=== PATIENT | male | born 1995 | race Two or more races ===

== ENCOUNTER 2024-11-02 06:38 | Emergency (ER) | payer MEDICAID, SELFPAY ==
[2024-11-02 06:39] VITALS: BMI 28.0
[2024-11-02 06:58] VITALS: BP 159/97; PULSE 83; RESP 19; TEMP 37.3; O2SAT 97
--- NOTE | 2024-11-02 07:02 | XR_ITS ---
Examination: CT abdomen and pelvis without contrast. Coronal 3-D reconstructions. Sagittal 2-D reconstructions. Date and time of exam:November 02, 2024, 0715 hours INDICATIONS: Abdominal pain and vomiting today CTDI: vol (mGy): 10.4 DLP: (mGycm): 664 Technique: Axial images of the abdomen have been obtained, 3 mm slice thickness Intravenous contrast material has not been administered. Low dose protocols were performed. One or more of the following dose reduction techniques were used; automated exposure control, adjustment of the mA and/or KV according to patient size, use of iterative reconstruction technique. Findings: Hepatomegaly, 20 cm with severe diffuse fatty infiltration throughout the liver No gallstones Spleen not enlarged No pancreatic or adrenal mass No renal or ureteral calculi, no hydronephrosis Normal appendix No bowel obstruction Colonic diverticulosis, no diverticulitis Normal seminal vesicles Contracted urinary bladder with significant urinary bladder wall thickening No prostatomegaly Adequate bone density IMPRESSION: Moderate hepatomegaly with severe diffuse fatty infiltration throughout the liver No renal or ureteral calculi, no hydronephrosis Normal appendix No bowel obstruction or diverticulitis Contracted urinary bladder with urinary bladder wall thickening, consider cystitis
--- NOTE | 2024-11-02 07:11 | PD.EDNV ---
Nausea/Vomit./Diarrhea-RME/HPI General Chief complaint: Abdominal Pain Stated complaint: UPPER ABD PAIN AND VOMITING Time Seen by Provider: 11/02/24 06:40 Arrival date/time: 11/02/24 06:38 RME / HPI RME / HPI Narrative: 29-year-old patient presents emergency department with complaint of generalized abdominal pain for the past 2 days along with nonbilious vomiting. Patient denies diarrhea. Patient denies any alleviating factors. Symptoms is aggravated with eating. He denies fever or chills he denies possibility of food poisoning. He denies any previous history of abdominal surgeries. Description of Vomiting: food contents and watery Related Data Previous Rx's ?Medication ?Instructions ?Recorded mupirocin calcium 2 % topical 1 applicatio topical TID #15 grams 02/21/18 cream (Bactroban) acetaminophen 500 mg tablet 500 mg PO Q6H PRN pain #30 tabs 11/02/24 famotidine 40 mg tablet (Pepcid) 40 mg PO .qbedtime #14 tabs 11/02/24 ondansetron 4 mg disintegrating 4 mg PO Q8H PRN nausea and 11/02/24 tablet vomiting #12 tabs Allergies Allergy/AdvReac Type Severity Reaction Status Date / Time No Known Allergies Allergy Verified 11/02/24 06:39 Review of Systems Review of Systems Systems Reviewed: All systems reviewed, normal except as documented Constitutional Constitutional: Reports system reviewed and no additional complaints, except as documented ENT Ears, Nose, Mouth, and Throat: Reports system reviewed and no additional complaints, except as documented Cardiovascular Cardiovascular: Reports system reviewed and no additional complaints, except as documented Respiratory Respiratory: Reports system reviewed and no additional complaints, except as documented Gastrointestinal Gastrointestinal: Reports system reviewed and no additional complaints, except as documented Musculoskeletal Musculoskeletal: Reports system reviewed and no additional complaints, except as documented ED Exam General General appearance: Present alert and in no apparent distress Head Head exam: Present atraumatic and normocephalic ENT ENT exam: Present normal exam and normal oropharynx Respiratory Respiratory exam: Present normal lung sounds bilaterally Cardiovascular Cardiovascular exam: Present regular rate and normal rhythm Abdominal Exam Abdominal exam: Present soft and normal bowel sounds; Absent tenderness, guarding or rigidity Extremities Exam Extremities exam: Present normal inspection and full ROM Neurological Exam Neurological exam: Present alert and oriented X3 Psychiatric Psychiatric exam: Present normal affect and normal mood Course Quality Measures none Orders Category Date Time Status CT abdomen pelvis wo con Stat Exams 11/02/24 07:02 Completed CBC Stat Lab 11/02/24 07:33 Completed CMP [Comprehensive Metabolic Panel] Stat Lab 11/02/24 07:33 Completed Lipase Stat Lab 11/02/24 07:33 Completed Urinalysis, C/S if Indicated Stat Lab 11/02/24 07:32 Completed Morphine Inj Med 11/02/24 07:05 Discontinued 4 mg IVP Q1H ONE Ondansetron Inj [Zofran Inj] Med 11/02/24 07:02 Discontinued 4 mg IVP X1 ONE Pantoprazole Inj [Protonix Inj] Med 11/02/24 07:02 Discontinued 40 mg IVP X1 ONE Sodium Chloride 0.9% 1000 ml [Ns] 1,000 ml Med 11/02/24 07:03 Discontinued IV 999 mls/hr Vital Signs Vital signs: Vital Signs Temperature 99.1 F 11/02/24 06:58 Pulse Rate 83 11/02/24 06:58 Respiratory Rate 19 11/02/24 06:58 Blood Pressure 159/97 H 11/02/24 06:58 Pulse Oximetry (%) 97 11/02/24 06:58 Oxygen Delivery Method Room Air 11/02/24 06:58 Nausea/Vomiting/Diarrhea MDM Narrative MDM Narrative:: 29-year-old patient presents emergency department complaint of vomiting and epigastric pain blood work was unremarkable. CT abdomen pelvis was also unremarkable. Signs and symptoms appears consistent with possible gastroenteritis patient is in agreement with plan and is stable to DC home patient remained afebrile nontoxic-appearing throughout ED stay Patient data External records reviewed:: None Clinical information provided by:: patient Social determinants that could affect healthcare access:: none Patient has the following chronic illnesses:: na How is presenting disease/condition affected by chronic disease/condition?: uneffected by Evaluation data The following diagnostics were reviewed and interpreted by me:: lab results and radiology exam(s) Lab and/or radiology exams considered but not ordered:: both considered and ordered Interpretation Summary: un remarkable Medications / Prescriptions Medications / Prescriptions considered but not ordered:: meds considered and ordered Medication administrations:: Medication Administration History Discontinued Medications Sodium Chloride (Ns) 1,000 mls @ 999 mls/hr IV .Q1H1M ONE Stop: 11/02/24 08:03 Morphine Sulfate (Morphine Sulf Inj 10 Mg/Ml Vial) 4 mg IVP Q1H ONE Stop: 11/02/24 07:06 Ondansetron HCl (Ondansetron Inj 2 Mg/Ml Inj 2 Ml) 4 mg IVP X1 ONE; Protocol Stop: 11/02/24 07:03 Pantoprazole Sodium (Pantoprazole Inj 40 Mg Vial) 40 mg IVP X1 ONE Stop: 11/02/24 07:03 per above Consultations Consultation(s) initiated? (list below): No Diagnosis Nausea Differential Diagnosis: traveler's diarrhea, food poisoning, gastroenteritis, drug-induced nausea and vomiting and dehydration Most likely diagnosis given after review of the tests above:: gastroenteritis Admission Indicated Admission indicated?: not indicated Admission Request Was there a request for admission?: No Disposition Plan Disposition Plan: Discharge Discharge Attestation Discharge Attestation: The patient and all family members were given an opportunity to ask questions and understood the discharge instructions. Discharge instructions specifically effects, indications for sooner follow up or return to the emergency department, and the expected course of current diagnosis. Patient condition: Stable Discharge Plan Plan Patient Disposition: HOME (Self Care) Prescriptions/Referrals Prescriptions/Med Rec: New ondansetron 4 mg tablet,disintegrating 4 mg PO Q8H PRN (Reason: nausea and vomiting) Qty: 12 0RF famotidine [Pepcid] 40 mg tablet 40 mg PO .qbedtime Qty: 14 0RF acetaminophen 500 mg tablet 500 mg PO Q6H PRN (Reason: pain) Qty: 30 0RF No Action mupirocin calcium [Bactroban] 2 % cream 1 applicatio TOPICAL TID Qty: 15 0RF Referrals: No Primary/Family,Physician [Primary Care Provider] - In 1 week Problem List Clinical Impression: Acute epigastric pain, Gastroesophageal reflux, Gastroenteritis Patient/Caregiver Discharge Instructions Education Materials: How Acid Reflux Affects Your Throat, Understanding Colitis, ED Gastroenteritis, Noninfectious, ED Epigastric Pain (Uncertain Cause) Print Language: Ken[place] Stand Alone Forms: Dianne Award Info., Patient Portal Info Letter
[2024-11-02 07:42] LABS: Collection Type, Urine Voided
[2024-11-02 07:54] LABS: Basophils % (Auto) 0 % (0-2.5); Eosinophils # (Auto) 0.3 Thou/mm3 (0.0-0.5); Eosinophils % (Auto) 2 % (0-10); Hematocrit 49.3 % (41.0-53.0); Hemoglobin 16.9 g/dL (13.5-16.0); Immature Granulocytes % (Auto) 1 % (0-0); Immature Granulocytes Auto 0.11 Thou/mm3 (0.00-0.00); Lymphocytes # (Auto) 1.1 Thou/mm3 (1.0-4.8); Lymphocytes % (Auto) 8 % (10-50); Mean Corpuscular HGB Conc 34.3 g/dl (31.0-37.0); Mean Corpuscular Hemoglobin 29.6 pg (25.0-35.0); Mean Corpuscular Volume 87 fL (80-100); Monocytes # (Auto) 0.4 Thou/mm3 (0.0-0.8); Monocytes % (Auto) 3 % (0-12); Neutrophils # (Auto) 12.2 Thou/mm3 (1.8-7.7); Neutrophils % (Auto) 86 % (37-80); Nucleated Red Blood Cell % 0 /100 WBC (0); Platelet Count 271 Thou/mm3 (140-440); RDW Standard Deviation 38.8 fL (35.1-43.9); White Blood Count 14.1 Thou/mm3 (3.8-10.6)
[2024-11-02 08:04] LABS: Alanine Aminotransferase 79 U/L (10-49); Albumin, Serum 4.7 gm/dL (3.5-5.0); Albumin/Globulin Ratio 1.5 (1.2-2.2); Alkaline Phosphatase 81 U/L (46-116); Anion Gap 9 (7-16); Aspartate Amino Transferase 29 U/L (0-34); BUN/Creatinine Ratio 9 Ratio (12-20); Bilirubin,Total 0.5 mg/dL (0.3-1.2); Blood Urea Nitrogen 8 mg/dL (9-23); Calcium 8.9 mg/dL (8.3-10.6); Calcium (Corrected) 8.9 mg/dL (8.5-10.1); Carbon Dioxide 26.9 mMol/L (20.0-31.0); Chloride 104 mMol/L (98-107); Creatinine (Component) 0.9 mg/dL (0.6-1.3); Estimated Creatinine Clearance 134.1 mL/min (>60); Globulin 3.2 gm/dL (2.3-3.5); Glucose 180 mg/dL (74-106); Lipase 24 U/L (12-53); Osmolality,Calculated 282 (275-295); Potassium 3.4 mMol/L (3.4-5.1); Sodium 140 mMol/L (136-145); Total Protein 7.9 gm/dL (5.7-8.2); eGFR > 60 See Note
[2024-11-02 08:16] LABS: Bacteria,Urine Rare; Bilirubin,Urine Negative (Negative); Blood,Urine Negative (Negative); Color,Urine Yellow (Lt Yel-Yel); Culture Indicated,Urine Not Indicated; Glucose, Urine 1+ (Negative); Ketones,Urine Negative (Negative); Leukocyte Esterase,Urine Negative (Negative); Nitrite,Urine Negative (Negative); PH,Urine 6.5 (5.0-7.0); Protein,Urine 1+ (Neg - Trace); RBC,Urine 7 /hpf (0-3); Specific Gravity,Urine 1.032 (1.001-1.035); Squamous Epithelial Cell,Urine 2 /hpf (0-5); Urobilinogen,Urine Negative mg/dL (0.0-1.0); WBC,Urine 1 /hpf (0-5)
[2024-11-02 08:17] LABS: Clarity,Urine Hazy (Clear/Hazy)
[2024-11-02 08:59] VITALS: BP 148/80; PULSE 70; RESP 16; TEMP 36.8; O2SAT 98
[2024-11-02] MEDS: SODIUM CHLORIDE 0.9% 1000 ML 1,000 ML 999 ML IV (09:23)
[2024-11-02] MEDS: ONDANSETRON INJ 2 MG/ML INJ 2 ML 4 MG IVP (09:23)
[2024-11-02] MEDS: PANTOPRAZOLE INJ 40 MG VIAL IVP (09:24)
[2024-11-02] MEDS: MORPHINE SULF INJ 10 MG/ML VIAL 4 MG IVP (09:24)
[2024-11-02 10:53] VITALS: BP 138/94; PULSE 67; RESP 16; TEMP 36.9; O2SAT 98
[2024-11-02] MEDS: HYDROmorphone INJ 2 MG/ML VIAL 1 MG IVP (11:53)
== END 2024-11-02 11:55 | disposition home or self-care (01) ==
PROVIDERS: Physician Assistant; Emergency Provider Emergency Medicine
DX: K52.9 Noninfective gastroenteritis and colitis, unspecified (principal); K21.9 Gastro-esophageal reflux disease without esophagitis
CPT/HCPCS: 36415; 74176; 80053; 81001; 83690; 85025; 96361; 96374; 96375; 99284; J1171; J2270; J2405; J2470; J7030